=== PATIENT | male | born 1990 | race Caucasian/White ===

== ENCOUNTER 2019-02-22 16:41 | Emergency (ER) | payer SELFPAY ==
--- NOTE | 2019-02-22 16:48 | ED Physician Documentation ---
General Adult - HISTORIAN Historian: patient - HPI Stated Complaint: right leg cellulitis Chief Complaint: Skin Rash Onset: days ago (3) Timing: still present Severity: moderate Further Comments: yes (He states he had a large red area with a small black center with itching. No pain . No fever . No drainage. He has seen spiders he is concerned a bite.) - ROS CONST: no problems MS/SKIN/LYMPH: rash - PAST HX Past History: none Immunizations: UTD Allergies/Adverse Reactions: Allergies Allergy/AdvReac Type Severity Reaction Status Date / Time C-KLOR Allergy Uncoded 02/22/19 16:45 Home Medications: Ambulatory Orders Medication Instructions Recorded NK 05/06/18 - SOCIAL HX Smoking History: non-smoker Alcohol Use: none Drug Use: none - FAMILY HX Family History: No - VITAL SIGNS Vital Signs: Vital Signs Temp Pulse Resp BP Pulse Ox 132/71 05/06/18 11:46 - REVIEWED ASSESSMENTS Nursing Assessment Reviewed: Yes Vitals Reviewed: Yes General Adult Physical Exam - PHYSICAL EXAM GENERAL APPEARANCE: no distress EENT: eye inspection normal, no signs of dehydration NECK: normal inspection RESPIRATORY: no resp distress, chest non-tender, breath sounds normal CVS: reg rate & rhythm, heart sounds normal, equal pulses ABDOMEN: soft, no distension SKIN: warm/dry, other (area on lateral side of right upper leg (did drawn line around for measurement and comparison) approx 10 cm and with a 1 cm or less small crusting black in color area - large area is red warm to touch and mildly swollen ) EXTREMITIES: non-tender, normal range of motion, no evidence of injury NEURO: oriented X3 Discharge Clincal Impression: Cellulitis Qualifiers: Site of cellulitis: extremity Site of cellulitis of extremity: lower extremity Laterality: right Qualified Code(s): L03.115 - Cellulitis of right lower limb Referrals: Naima Bailon MD [Primary Care Provider] - 2 Days Comments: 1. Bactrim DS take 1 by mouth twice daily x10 days 2. Warm compress 3. OTC meds as directed as needed for pain 3. Follow up with PCP In 2 days 4. Return to ER for any increasing concerns Condition: Stable Disposition: 01 HOME, SELF-CARE Decision to Admit: NO Date of Decison to Admit: 02/22/19 Decision Time: 17:19
[2019-02-22 17:02] VITALS: BP 146/89
== END 2019-02-22 17:31 | disposition home or self-care (01) ==
LOC: ED 16:41
DX: L03.115 Cellulitis of right lower limb (principal)
CPT/HCPCS: 99283; 99284